=== PATIENT | female | born 1990 | race Caucasian/White ===

== ENCOUNTER 2021-12-23 23:15 | Emergency (ER) | payer SELFPAY ==
[2021-12-23 23:18] VITALS: BP 127/71; PULSE 109; RESP 18; TEMP 37; O2SAT 97; BMI 21.1
== END 2021-12-23 23:52 | disposition left against medical advice (07) ==
PROVIDERS: Emergency Provider Family Medicine
DX: Z53.21 Procedure and treatment not carried out due to patient leaving prior to being seen by health care provider (principal); R53.83 Other fatigue; R51.9 Headache, unspecified

== ENCOUNTER 2022-01-29 02:36 | Emergency (ER) | payer SELFPAY ==
--- NOTE | 2022-01-29 02:39 | XRR_ITS ---
PROCEDURE INFORMATION: Exam: XR Chest Exam date and time: 01/29/2022 3:41 AM Age: 31 years old Clinical indication: Pain; Angina pectoris; Additional info: Cp TECHNIQUE: Imaging protocol: Radiologic exam of the chest. Views: 1 view. COMPARISON: CR Chest 1 [place] [id number] 12/20/2015 11:42 AM FINDINGS: Tubes, catheters and devices: Monitor leads project over the chest. Lungs: No significant or acute findings. No consolidation. Pleural spaces: No costophrenic angle blunting. No pneumothorax. Heart/Mediastinum: Heart size is normal. Bones/joints: No acute osseous abnormality. XR/XR chest 1V portable [id number] IMPRESSION: No acute abnormality demonstrated.
[2022-01-29 02:47] VITALS: BP 121/79; PULSE 93; RESP 32; TEMP 36.5; O2SAT 99; BMI 21.1
--- NOTE | 2022-01-29 03:03 | ECG_ITS ---
[facility] Test Date: 2022-01-29 Pat Name: Geovanna Viera Department: Room: Gender: Female Medical Practice Manager: : 1990 Requested By: Donny Mckeon Order Number: [id number] Darren MD: Rayo Fuchs M.D. Measurements Intervals [place] Rate: 91 P: 76 NC: 166 QRS: 81 QRSD: 93 T: 68 QT: 365 QTc: 450 Interpretive Statements SINUS RHYTHM POSSIBLE LEFT ATRIAL ENLARGEMENT [-0.1mV P-WAVE IN V1/V2] POSSIBLE RIGHT VENTRICULAR CONDUCTION DELAY [RSR (QR) IN V1/V2] No previous ECG available for comparison Electronically Signed On 01-29-2022 8:08:06 CDT by Rayo Fuchs M.D. [email or web address]
[2022-01-29 03:09] LABS: Basophils # 0.1 10^3/uL (0.0-0.1); Basophils % 0.4 %; Eosinophils # 0.3 10^3/uL (0.0-0.8); Eosinophils % 2.1 %; Hematocrit 42.8 % (37.0-47.0); Hemoglobin 14.2 g/dL (11.5-15.3); Lymphocytes # 2.4 10^3/uL (0.8-4.8); Lymphocytes % 18.4 %; Mean Corpuscular HGB Conc 33.2 g/dL (30.0-36.0); Mean Corpuscular Volume 93.4 fl (81-99); Mean Platelet Volume 11.2 fL (7.4-10.4); Monocytes # 0.8 10^3/uL (0.2-0.9); Monocytes % 5.9 %; Neutrophils # 9.54 10^3/uL (1.8-7.7); Neutrophils % 72.6 %; Nucleated Red Blood Cells % 0 %; Platelet Count 194 10^3/cmm (130-400); Red Blood Count 4.58 10^6/uL (4.1-5.3); Red Cell Distribution Width 14.3 % (12.1-15.1); White Blood Count 13.2 10^3/uL (4.0-10.0)
[2022-01-29 03:16] VITALS: RESP 28; O2SAT 99
[2022-01-29] MEDS: ondansetron 2 mg/ML SDV 2 mL 4 MG IVP (03:16)
[2022-01-29] MEDS: morphine 4 mg/mL SDV 1 mL IVP (03:16)
[2022-01-29] MEDS: lidocaine 2% viscous 15 ML, aluminum-mag hydrox-simethicon 30 ML, sucralfate oral liq 1 GM PO (03:16)
[2022-01-29 03:30] LABS: Alanine Aminotransferase 8 U/L (0-33); Albumin Level 4.3 g/dL (3.5-5.2); Alkaline Phosphatase 58 IU/L (35-105); Aspartate Amino Transferase 9 U/L (0-32); Blood Urea Nitrogen 10 mg/dL (6-20); Calcium 9.3 mg/dL (8.5-10.5); Carbon Dioxide 27 mmol/L (22-29); Chloride 105 mmol/L (98-107); Globulin 2.6 g/dL (1.3-4.6); Glomerular Filtration Rate 84.8 mL/min (90-130); Glucose 121 mg/dL (65-115); Osmolality Calculated 290 mOsm/kg (285-295); Sodium 140 mmol/L (136-145); Total Bilirubin 0.2 mg/dL (0.15-1.2); Total Protein 6.9 g/dL (6.6-8.7)
[2022-01-29 03:31] LABS: D Dimer 0.34 ug/mIFEU (0-0.59)
[2022-01-29 03:31] LABS: Troponin(5th) Baseline 6 ng/L (0-10)
[2022-01-29 03:34] LABS: Anion Gap 12.4 (5-19); Potassium 4.4 mmol/L (3.5-5.1)
--- NOTE | 2022-01-29 03:59 | W.ED.CHESTPA ---
HPI - Chest Pain General: Chief Complaint: Chest Pain Stated Complaint: SOB\Chest Pain Time Seen by Provider: 01/29/22 02:42 Source: patient History of Present Illness: 31-year-old female who awoke suddenly with a sharp low central chest discomfort. She notes it hurts to take a breath. She has had a bit of a cough. There is some shortness of breath with it. No vomiting. No fever. No history of heart problems. MD complaint: chest pain Pertinent past history: other Onset (ago): hour(s) Timing of current episode: constant Prior episodes: No Onset: during rest and awoke with symptoms Pain location: substernal Pain radiation: none Severity: moderate Quality: sharp Relieving factors: nothing Exacerbating factors: inspiration Associated symptoms: Reports dyspnea; Deny abdominal pain, diaphoresis, fever(s), leg edema, nausea or vomiting Treatment prior to arrival: none Review of Systems Const: Denies: fever(s) or diaphoresis ENMT: Denies: throat pain Card: Reports: chest pain Resp: Reports: dyspnea and productive cough GI: Denies: abdominal pain, nausea or vomiting Musc: Denies: back pain Psych: Reports: anxiety [facility] ED Female Reproductive History: Date of last menstrual period: 01/27/22 Physical Exam Const: GENERAL APPEARANCE: cooperative and anxious; not frail appearing HENMT: COMMON NORMALS: normocephalic, atraumatic and Normal external nose present HEAD & SCALP: normocephalic and atraumatic NOSE: Normal external nose present Eye: COMMON NORMALS: Equal, round and reactive pupils present and EOMs intact bilaterally PUPIL: Yes Equal, round and reactive pupils present Neck/C-Spine: GENERAL: Yes trachea midline Chest: CHEST: Yes Symmetrical chest wall rise and Yes tenderness (Sternal) Resp: COMMON NORMALS: clear to auscultation bilaterally EFFORT & INSPECTION: Yes tachypneic and Yes other (Splinting) AUSCULTATION: clear to auscultation bilaterally Cardio: COMMON NORMALS: regular rate and regular rhythm RATE: regular rate RHYTHM: regular rhythm GI: COMMON NORMALS: Normal to inspection, nondistended, normoactive bowel sounds present PALPATION: No Tenderness to palpation present (GI) Extremity: COMMON NORMALS: no pedal edema Neuro: BRIANA COMA SCALE: document GCS findings Briana coma scale eye opening: Spontaneous Briana coma scale verbal response: Orientated Briana coma scale motor response: Obey commands [place] coma scale total score: 15 Course Vital Signs: Vital signs: Vital Signs Temperature 97.9 F 01/29/22 04:37 Pulse Rate 92 01/29/22 04:37 Respiratory Rate 26 H 01/29/22 04:37 Blood Pressure 121/65 01/29/22 04:37 Pulse Oximetry 99 01/29/22 04:37 MDM - Chest Pain Medical Decision Making White blood cell count is 13. No large left shift. D-dimer is 0.34. BMP is normal. Her troponin is 6. Liver enzymes are normal. Chest x-ray is negative. She is afebrile. She is not tachycardic. Saturations are normal. Blood pressure 118/63. Lab Data : 01/29/22 02:55 01/29/22 02:55 Laboratory Results WBC 13.2 10^3/uL (4.0-10.0) H 01/29/22 02:55 RBC 4.58 10^6/uL (4.1-5.3) 01/29/22 02:55 Hgb 14.2 g/dL (11.5-15.3) 01/29/22 02:55 Hct 42.8 % (37.0-47.0) 01/29/22 02:55 MCV 93.4 fl (81-99) 01/29/22 02:55 MCH 31.0 pg (28.0-34.0) 01/29/22 02:55 MCHC 33.2 g/dL (30.0-36.0) 01/29/22 02:55 RDW 14.3 % (12.1-15.1) 01/29/22 02:55 Plt Count 194 10^3/cmm (130-400) 01/29/22 02:55 MPV 11.2 fL (7.4-10.4) H 01/29/22 02:55 Neut % (Auto) 72.6 % 01/29/22 02:55 Lymph % (Auto) 18.4 % 01/29/22 02:55 [place] % (Auto) 5.9 % 01/29/22 02:55 Eos % (Auto) 2.1 % 01/29/22 02:55 Baso % (Auto) 0.4 % 01/29/22 02:55 Neut # (Auto) 9.54 10^3/uL (1.8-7.7) H 01/29/22 02:55 Lymph # (Auto) 2.4 10^3/uL (0.8-4.8) 01/29/22 02:55 [place] # (Auto) 0.8 10^3/uL (0.2-0.9) 01/29/22 02:55 Eos # (Auto) 0.3 10^3/uL (0.0-0.8) 01/29/22 02:55 Baso # (Auto) 0.1 10^3/uL (0.0-0.1) 01/29/22 02:55 Nucleated RBC % (auto) 0 % 01/29/22 02:55 Nucleated RBCs # 0.0 /100WBC 01/29/22 02:55 D-Dimer 0.34 ug/mIFEU (0-0.59) 01/29/22 03:15 Sodium 140 mmol/L (136-145) 01/29/22 02:55 Potassium 4.4 mmol/L (3.5-5.1) 01/29/22 02:55 Chloride 105 mmol/L (98-107) 01/29/22 02:55 Carbon Dioxide 27 mmol/L (22-29) 01/29/22 02:55 Anion Gap 12.4 (5-19) 01/29/22 02:55 BUN 10 mg/dL (6-20) 01/29/22 02:55 Creatinine 0.8 mg/dL (0.5-0.9) 01/29/22 02:55 GFR Calculation 84.8 mL/min (90-130) L 01/29/22 02:55 Glucose 121 mg/dL (65-115) H 01/29/22 02:55 Calculated Osmolality 290 mOsm/kg (285-295) 01/29/22 02:55 Calcium 9.3 mg/dL (8.5-10.5) 01/29/22 02:55 Total Bilirubin 0.2 mg/dL (0.15-1.2) 01/29/22 02:55 AST 9 U/L (0-32) 01/29/22 02:55 ALT 8 U/L (0-33) 01/29/22 02:55 Alkaline Phosphatase 58 IU/L (35-105) 01/29/22 02:55 Troponin T Baseline 6 ng/L (0-10) 01/29/22 02:55 Total Protein 6.9 g/dL (6.6-8.7) 01/29/22 02:55 Albumin 4.3 g/dL (3.5-5.2) 01/29/22 02:55 Globulin 2.6 g/dL (1.3-4.6) 01/29/22 02:55 Discharge Plan Discharge Patient Disposition: Home Clinical Impression: Chest pain, Bronchitis Condition: Stable Prescriptions: New Medrol (Atul) 4 mg tablets,dose pack See Rx Instructions .ROUTE .COMPLEX Qty: 21 0RF Rx Instructions: orally per package directions albuterol sulfate 90 mcg/actuation HFA aerosol inhaler 2 inh INHALATION Q4H PRN (Reason: shortness of breath or wheezing) Qty: 6.7 1RF Discharge Orders: Discharge ED (Routine); Ordered 01/29/22 Ordered By: Donny Hdz Patient Instructions: Chest Pain (ED), Acute Bronchitis (ED) Activity Restrictions/Additional Instructions: You are being tested for COVID-19. Call back later today for the results of your testing. [phone] and you can ask for the laboratory. Use the inhaler every 4 hours while awake for the next 48 hours, then as needed. Other medication as directed. Return for significant fever, worsening chest pain despite treatment, worsening shortness of breath despite treatment, other concerning symptoms. Coding Level of Care Code ED Manufacturing Assembler for Estelle Fwerick Exam Comprehensive
[2022-01-29] MEDS: ketorolac 30 mg/mL INJ 15 MG IVP (04:36)
[2022-01-29 04:37] VITALS: BP 121/65; PULSE 92; RESP 26; TEMP 36.6; O2SAT 99
== END 2022-01-29 04:54 | disposition home or self-care (01) ==
PROVIDERS: Emergency Provider Emergency Medicine
DX: R07.9 Chest pain, unspecified (principal); J40 Bronchitis, not specified as acute or chronic
CPT/HCPCS: 71045; 80053; 84484; 85025; 85378; 93005; 96374; 96375; 99285; J1885; J2270; J2405

== ENCOUNTER → 2025-04-19 09:41 | Outpatient (BNVA) | payer OTHER, SELFPAY | DX: Z76.89 Persons encountering health services in other specified circumstances (principal); R30.0 Dysuria; Z20.2 Contact with and (suspected) exposure to infections with a predominantly sexual mode of transmission | CPT/HCPCS: 80053; 80061; 81000; 82306; 82607; 84443; 85025; 85651; 86140; 87077; 87086; 87184; 87491; 87591; 87661 ==